=== PATIENT | female | born 1940 | race Caucasian/White ===

== ENCOUNTER → 2019-09-28 | Outpatient (CLI) | payer MEDICARE ==
--- NOTE | 2019-09-28 15:32 | US ---
EXAMINATION TYPE: US kidneys/renal and bladder DATE OF EXAM: 09/28/2019 COMPARISON: NONE CLINICAL HISTORY: N18.3 Chronic kidney disease, stage 3 (moderate). Abnormal labs EXAM MEASUREMENTS: Right Kidney: 9.5 x 5.1 x 5.4 cm Left Kidney: 9.6 x 4.3 x 4.2 cm Right Kidney: Cortical thinning, cyst lower pole= 4.0 x 2.9 x 3.5 cm, cyst upper pole= 1.7 x 1.4 x 1. 4 cm Left Kidney: Cortical thinning Bladder: wnl Bilateral Jets seen: Only right jet visualized There is no evidence for hydronephrosis at this point in time. No nephrolithiasis is seen. No suspi cious masses are identified. The urinary bladder is anechoic. Bilateral ureteral jets are not seen. IMPRESSION: Sonographic sequela of medical renal disease. There are 2 right renal cysts measuring up to 4.0 cm that appears simple and benign. No hydronephrosis of either kidney.
== END | disposition home or self-care (01) ==
LOC: RADUSWWP 14:05
PROVIDERS: ATTEND Family Medicine
DX: N28.1 Cyst of kidney, acquired (principal); N28.9 Disorder of kidney and ureter, unspecified
CPT/HCPCS: 76770

== ENCOUNTER 2023-05-17 14:24 | Emergency (ER) | payer MEDICARE ==
[2023-05-17] MEDS ORDERED: ONDANSETRON ODT 4 MG TAB PO STA (14:40)
[2023-05-17 14:48] VITALS: RESP 18; TEMP 97.4
--- NOTE | 2023-05-17 14:57 | ED ---
General Adult HPI - General Chief complaint: Extremity Injury, Upper Stated complaint: Fall, right shoulder injury Time Seen by Provider: 05/17/23 14:45 Source: patient, RN notes reviewed, old records reviewed Mode of arrival: EMS Limitations: physical limitation - History of Present Illness Initial comments: This is an 82-year-old female who presents to the emergency department after she fell. Patient states she tripped and landed on her right shoulder. Patient denies hitting her head or neck. Patient denies any headache. Patient denies any chest pain or back pain. Patient has any abdominal pain. Patient has any extremity pain other than the right shoulder. Patient states after she hurt her shoulder she was in quite a bit of pain and was vomiting. Review of Systems ROS Statement: Those systems with pertinent positive or pertinent negative responses have been documented in the HPI. ROS Other: All systems not noted in ROS Statement are negative. Past Medical History Past Medical History: Atrial Fibrillation History of Any Multi-Drug Resistant Organisms: None Reported Additional Past Surgical History / Comment(s): Tooth extraction Past Psychological History: Anxiety Smoking Status: Former smoker Past Alcohol Use History: None Reported Past Drug Use History: None Reported General Exam - General Exam Comments Initial Comments: GENERAL: Patient is well-developed and well-nourished. Patient is nontoxic and well- hydrated and is in mild distress. ENT: Neck is soft and supple. No significant lymphadenopathy is noted. Oropharynx is clear. Moist mucous membranes. Neck has full range of motion without eliciting any pain. EYES: The sclera were anicteric and conjunctiva were pink and moist. Extraocular movements were intact and pupils were equal round and reactive to light. Eyelids were unremarkable. PULMONARY: Unlabored respirations. Good breath sounds bilaterally. No audible rales rhonchi or wheezing was noted. CARDIOVASCULAR: There is a regular rate and rhythm without any murmurs gallops or rubs. ABDOMEN: Soft and nontender with normal bowel sounds. No palpable organomegaly was noted. There is no palpable pulsatile mass. SKIN: Skin is clear with no lesions or rashes and otherwise unremarkable. NEUROLOGIC: Patient is alert and oriented x3. Cranial nerves II through XII are grossly intact. Motor and sensory are also intact. Normal speech, volume and content. Symmetrical smile. MUSCULOSKELETAL: Patient is tender to the anterior lateral aspect of the right shoulder. Patient has no tenderness to any other extremities and no tenderness to the right elbow or wrist LYMPHATICS: No significant lymphadenopathy is noted PSYCHIATRIC: Normal psychiatric evaluation. Limitations: physical limitation Course Vital Signs 05/17/23 14:44 Temperature 97.4 F L Pulse Rate 48 L Respiratory 18 Rate Blood Pressure 94/52 O2 Sat by Pulse 96 Oximetry Medical Decision Making - Medical Decision Making Was pt. sent in by a medical professional or institution (, [facility], SOCIAL SCIENCE PROFESSOR, urgent care, hospital, or [place] health care facility...) When possible be specific @ -No Did you speak to anyone other than the patient for history (EMS, parent, family, police, friend...)? What history was obtained from this source @ -No Did you review nursing and triage notes (agree or disagree)? Why? @ -I reviewed and agree with nursing and triage notes Were old charts reviewed (outside hosp., previous admission, EMS record, old EKG, old radiological studies, urgent care reports/EKG's, [place] health care facility records)? Report findings @ -No old charts were reviewed Differential Diagnosis (chest pain, altered mental status, abdominal pain women, abdominal pain men, vaginal bleeding, weakness, fever, dyspnea, syncope, headache, dizziness, GI bleed, back pain, seizure, CVA, palpatations, mental health, musculoskeletal)? @ -Differential Musculoskeletal Muscular strain, contusion, ligament sprain, fracture, arthritis, septic arthritis, bursitis, cellulitis, muscle spasm, nerve compression, DVT, arterial occlusion, herpes zoster, electrolyte abnormality, tumor.... This is not meant to be in all inclusive list EKG interpreted by me (3pts min.). @ -As above X-rays interpreted by me (1pt min.). @ -X-ray of the shoulder shows a comminuted impacted fracture of the humerus on the right CT interpreted by me (1pt min.). @ -None done U/S interpreted by me (1pt. min.). @ -None done What testing was considered but not performed or refused? (CT, X-rays, U/S, labs)? Why? @ -None What meds were considered but not given or refused? Why? @ -None Did you discuss the management of the patient with other professionals (professionals i.e. , OLE[employer], SOCIAL SCIENCE PROFESSOR, lab, RT, psych nurse, oncology social work, lettuce trimmer, teacher, canine enforcement officer, field nurse case manager)? Give summary @ -I spoke with the physician human resources executive assistant for Dr. Torre wanted the patient put in a shoulder immobilizer and follow-up in the office Was smoking cessation discussed for >3mins.? @ -No Was critical care preformed (if so, how long)? @ -No Were there social determinants of health that impacted care today? How? (Homelessness, low income, unemployed, alcoholism, drug addiction, transportation, low edu. Level, literacy, decrease access to med. care, fpc, rehab)? @ -No Was there de-escalation of care discussed even if they declined (Discuss DNR or withdrawal of care, Hospice)? DNR status @ -No What co-morbidities impacted this encounter? (DM, HTN, Smoking, COPD, CAD, Cancer, CVA, ARF, Chemo, Hep., AIDS, mental health diagnosis, sleep apnea, morbid obesity)? @ -None Was patient admitted / discharged? Hospital course, mention meds given and route, prescriptions, significant lab abnormalities, going to OR and other pertinent info. @ -Patient x-ray which showed a proximal humerus fracture and patient was put in a shoulder immobilizer and family was with her and agree that [facility] would [facility] Undiagnosed new problem with uncertain prognosis? @ -No Drug Therapy requiring intensive monitoring for toxicity (Heparin, Nitro, Insulin, Cardizem)? @ -No Were any procedures done? @ -No Diagnosis/symptom? @ -Fracture humerus comminuted impacted Acute, or Chronic, or Acute on Chronic? @ -Acute Uncomplicated (without systemic symptoms) or Complicated (systemic symptoms)? @ -Complicated Side effects of treatment? @ -No Exacerbation, Progression, or Severe Exacerbation? @ -No Poses a threat to life or bodily function? How? (Chest pain, [place], [place], pneumonia, PE, COPD, DKA, ARF, appy, cholecystitis, CVA, Diverticulitis, Homicidal, Suicidal, threat to staff... and all critical care pts) @ -No Disposition Clinical Impression: Humerus fracture Disposition: HOME SELF-CARE Instructions (If sedation given, give patient instructions): Proximal Humerus Fracture (ED) Additional Instructions: [facility] with [facility]. Patient should take Motrin and Tylenol when necessary for pain. Is patient prescribed a controlled substance at d/c from ED?: No Referrals: Billy Tellez MD [Primary Care Provider] - 1-2 days Chriss Torre MD [Medical Doctor] - 1-2 days Time of Disposition: 15:51
--- NOTE | 2023-05-17 15:15 | XR ---
EXAMINATION TYPE: XR chest 1V, XR shoulder complete RT DATE OF EXAM: 05/17/2023 3:07 PM COMPARISON: Chest radiographs from 10/08/2013 TECHNIQUE: XR chest 1V, XR shoulder complete RT Frontal view of the chest. The right shoulder was exa mined in internal rotation, external rotation, scapular Y view projections, CLINICAL INDICATION:Female, 82 years old with history of FALL; FINDINGS: Lungs/Pleura: There is no evidence of pleural effusion, focal consolidation, or pneumothorax. Pulmonary vascularity: Unremarkable. Heart/mediastinum: Cardiomediastinal silhouette is unremarkable. Atherosclerotic calcifications are seen in the aorta. Musculoskeletal: Acute comminuted and mildly displaced right proximal humeral neck fracture with exte nsion into the greater tuberosity. There is approximately 1.5 cm of shortening. Moderate AC joint art hropathy with joint space narrowing and spurring noted. IMPRESSION: Acute comminuted mildly displaced right proximal humeral neck fracture with extension to the greater tuberosity.
[2023-05-17 16:10] VITALS: BP 132/78; PULSE 80
== END 2023-05-17 16:10 | disposition home or self-care (01) ==
LOC: EC 14:24
DX: S42.351A Displaced comminuted fracture of shaft of humerus, right arm, initial encounter for closed fracture (principal); I48.91 Unspecified atrial fibrillation; Z86.59 Personal history of other mental and behavioral disorders; Z87.891 Personal history of nicotine dependence; W01.0XXA Fall on same level from slipping, tripping and stumbling without subsequent striking against object, initial encounter
CPT/HCPCS: 71045; 99284

== ENCOUNTER → 2024-09-21 | Outpatient (CLI) | payer MEDICARE ==
--- NOTE | 2024-09-21 10:37 | US ---
EXAMINATION TYPE: US kidneys/renal and bladder DATE OF EXAM: 09/21/2024 COMPARISON: Renal ultrasound 09/28/2019 CLINICAL INDICATION: Female, 84 years old with history of N18.30 CHRONIC KIDNEY DISEASE, STAGE 3; CKD 3 TECHNIQUE: Grayscale and color Doppler imaging of the bilateral kidneys and urinary bladder: FINDINGS: EXAM MEASUREMENTS: Right Kidney: 8.5 x 4.5 x 2.9 cm Left Kidney: 8.2 x 3.5 x 3.3 cm Right Kidney: Echogenic foci seen lower pole 7mm. Multiple cysts seen largest inferior 7.1 x 3.5 x 4. 0 cm. Left Kidney: No hydronephrosis or masses seen Bladder: Anechoic Bilateral Jets seen: no There is no evidence for hydronephrosis at this point in time. Nonobstructive right lower pole 7 mm c alculus. Multiple simple right renal cysts with largest inferiorly measuring 7.1 cm. No left renal ca lculi. Cortical medullary differentiation is maintained bilaterally. No masses are identified. The u rinary bladder is anechoic. Bilateral ureteral jets not seen. IMPRESSION: 1. No hydronephrosis. 2. Nonobstructive right renal calculus. 3. Right renal simple cysts. [facility], , 09/21/2024 10:34 AM
== END | disposition home or self-care (01) ==
LOC: RADUSWWP 08:00
PROVIDERS: ATTEND Internal Medicine
CPT/HCPCS: 76770

== ENCOUNTER → 2024-10-12 | Outpatient (CLI) | payer MEDICARE ==
--- NOTE | 2024-10-12 09:03 | USB ---
Patient History: Menarche at age 15. First Full-Term at age 27. Postmenopausal. Patient has history of breast feeding. Daughter had breast cancer, right, age 51. Daughter tested for BRCA2 outcome was positive. Daughter tested for BRCA1 outcome was negative. Risk Values: Harini 5 year model risk: 3.1%. NCI Lifetime model risk: 4.1%. Technique: Method: Targeted. Doppler: Color. Patient Position: Supine. Prior Study Comparison: 08/18/2007 Bilateral Screening Mammogram, [facility]. 03/20/2010 Bilateral Screening Mammogram, [facility]. 09/15/2013 Bilateral Screening Mammogram, [facility]. Findings: The upper inner quadrant of the right breast, the periareolar of the right breast, the axilla of the right breast and the retroareolar of the right breast were scanned. Irregular spiculated mass at the right 1:00 position 3 cm from the nipple measuring 3.6 x 3.7 x 3.0 cm with increased vascularity seen. Additional solid nodule at the right 3:00 position measuring 1 cm. No adenopathy appreciated in the region of the right axilla. Overall Assessment: Highly suggestive of malignancy, BI-RAD 5 Management: Ultrasound Core Biopsy of the right breast. A clinical breast exam by your physician is recommended on an annual basis and results should be correlated with mammographic findings. This exam should not preclude additional follow-up of suspicious palpable abnormalities. Results were given to the patient verbally at the time of exam. [facility], , 10/12/2024 8:59 AM. Electronically signed and approved by: Ronald Miller M.D. Radiologis
--- NOTE | 2024-10-12 12:59 | MM ---
Reason for Exam: Clinical finding. Last mammogram was performed 11 year(s) and 1 month(s) ago. Indicated Problems: Lump or thickening of the right side (size 50) for 11 Month(s). Patient History: Menarche at age 15. First Full-Term at age 27. Postmenopausal. Patient has history of breast feeding. Daughter had breast cancer, right, age 51. Daughter tested for BRCA2 outcome was positive. Daughter tested for BRCA1 outcome was negative. Risk Values: Harini 5 year model risk: 3.1%. NCI Lifetime model risk: 4.1%. Prior Study Comparison: 08/18/2007 Bilateral Screening Mammogram, [facility]. 03/20/2010 Bilateral Screening Mammogram, [facility]. 09/15/2013 Bilateral Screening Mammogram, [facility]. Tissue Density: The breasts are almost entirely fatty. Findings: Analyzed By CAD. Spiculated mass at 12:00 position measuring 4.6 x 3.1 cm. In the inner portion of the right breast with some additional 5.5 nodular density 4.5 cm from nipple. No left-sided breast mass is seen. Benign left-sided vascular and secretory type calcifications identified. No obvious adenopathy present. Overall Assessment: Incomplete: need additional imaging evaluation, BI-RAD 0 Management: Diagnostic Breast Ultrasound of the right breast. Results were given to the patient verbally at the time of exam. Patient should continue monthly self-breast exams. A clinical breast exam by your physician is recommended on an annual basis. This exam should not preclude additional follow-up of suspicious palpable abnormalities. Note on Harini scores and lifetime risk: 1. A Harini score greater than 3% is considered moderate risk. If this is the case, consider specialist referral to assess eligibility for a risk reducing agent. 2. If overall lifetime risk for the development of breast cancer is 20% or higher, the patient may qualify for future screening with alternating mammogram and breast MRI. [facility], , 10/12/2024 8:46 AM . Electronically signed and approved by: Ronald Miller M.D. Radiologis
== END | disposition home or self-care (01) ==
LOC: RADMAMWWP 08:01
PROVIDERS: ATTEND Internal Medicine
DX: N63.0 Unspecified lump in unspecified breast (principal); Z78.0 Asymptomatic menopausal state; Z80.3 Family history of malignant neoplasm of breast; R92.313 Mammographic fatty tissue density, bilateral breasts
CPT/HCPCS: 77066; 76642; G0279; 77062

== ENCOUNTER → 2024-11-01 | Day surgery (SDC) | payer MEDICARE ==
--- NOTE | 2024-11-08 11:04 | MM ---
Reason for Exam: Post Procedure Mammogram. Last screening mammogram was performed less than 1 month ago. Patient History: Menarche at age 15. First Full-Term at age 27. Postmenopausal. Patient has history of breast feeding. Daughter had breast cancer, right, age 51. Daughter tested for BRCA2 outcome was positive. Daughter tested for BRCA1 outcome was negative. Risk Values: Harini 5 year model risk: 3.1%. NCI Lifetime model risk: 4.1%. Prior Study Comparison: 03/20/2010 Bilateral Screening Mammogram, [facility]. 09/15/2013 Bilateral Screening Mammogram, [facility]. 10/12/2024 Bilateral MG 3D diag mammo w/cad ROSARIO, [facility]. Tissue Density: Right: The breasts are almost entirely fatty. Pathology Description: Location: 11 o'clock. Marker Left Behind. Cores: 5 Gauge: 13 Pathology Results: Results pending. Pathology Description: Location: 1 o'clock. Marker Left Behind. Needle Type: Mammotome Cores: 7 Skin Nicks: 1 Gauge: 13 The procedure of ultrasound guided core biopsy was explained to the patient. Benefits, alternatives, and risks were discussed. An informed consent was then obtained. A timeout was performed. The patient was placed in supine positioning for imaging and for the procedure. The overlying skin was prepped and draped in usual sterile fashion. Skin was anesthetized with lidocaine. Lidocaine epinephrine was used as anesthetic into subcutaneous tissue up to area of concern in the right breast. A small skin kylah was made with surgical scalpel. Under ultrasound guidance, a 12-gauge vacuum assisted biopsy gun device was used to obtain 7 core samples from the 1:00 lesion 3 cm from the nipple. A biopsy clip was left in lesion. Hydromark wing core marker was placed. Under ultrasound guidance, a 12-gauge vacuum assisted biopsy gun device was used to obtain 4 core samples from the 11:00 lesion 3 cm from the nipple. (Originally labelled 3 o'clock. No similar lesion at that location.) A biopsy clip was left in lesion. Hydromark butterfly core marker was placed. The patient tolerated the procedure well without any immediate complication. The patient was kept in the radiology department for short stay after the procedure and then discharged home in stable condition. Postprocedure mammogram: The patient was transferred to mammography for physician ordered post procedure mammogram for clip placement verification. Post procedure mammogram demonstrates the clip in appropriate placement. Impression: Successful ultrasound guided core biopsy of 2 areas of concern in the right breast, full pathology results to follow. Recommendations: 1. Recommendations are pending pathology results. [facility], , 11/01/2024 1:40 PM. Pathology Results: Result: Malignant, Invasive ductal carcinoma. Pathology and radiology were reviewed. Findings are concordant. A. 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 B. RIGHT BREAST, ELEVEN O'CLOCK, ULTRASOUND GUIDED CORE BIOPSY: Invasive high grade ductal carcinoma, Grade 3, with focal high grade DCIS (see Surgical Pathology Cancer Case Summary and Comment). Overall Assessment: Malignant Assessment: MG diagnostic mammo RT wo CAD - Right: Known biopsy proven malignancy, BI-RAD 6. Management: Diagnostic Breast Ultrasound of the right breast in 6 months. Surgical Consultation of the right breast. Electronically signed and approved by: Jose Espinoza D.O. Radiologis
== END ==
LOC: RADUSWWP 10:12
PROVIDERS: ATTEND Internal Medicine
DX: C50.211 Malignant neoplasm of upper-inner quadrant of right female breast (principal); Z17.0 Estrogen receptor positive status [ER+]; Z78.0 Asymptomatic menopausal state; Z80.3 Family history of malignant neoplasm of breast
CPT/HCPCS: 88305; 88342; 88341; 77065; 19083; 19084; A4648

== ENCOUNTER → 2024-12-01 | Outpatient (CLI) | payer MEDICARE ==
--- NOTE | 2024-12-01 17:21 | PE ---
EXAMINATION TYPE: PET CT fusion skull to thigh DATE OF EXAM: 12/01/2024 CLINICAL INDICATION:Female, 84 years old with history of C50.211 BREAST CA; TECHNIQUE: Following the intravenous administration of 13.6 mCi of F-18 FDG, whole body images are performed from the skull base to the midthigh. Images are reviewed on the computer in the coronal, a xial, and sagittal planes. Reconstructed rotating images are created on independent workstation and reviewed on the computer. A non-contrast CT is performed in conjunction with the PET scan. Glucose level 103 mg/dL CT DLP: 510.32 mGycm, Automated exposure control for dose reduction was used. COMPARISON: CT None, PET/CT None, MRI: None FINDINGS: Mediastinal SUV mean is 2.2. Hepatic parenchyma SUV mean is 2.8. SKULL BASE AND NECK: No suspicious radiotracer activity. CHEST, MEDIASTINUM, AND HILAR REGION: Upper right breast mass measuring up to 4.2 cm with radiotracer uptake demonstrating a maximum SUV of 29.6. No definitive FDG avid lymphadenopathy. ABDOMEN AND PELVIS: No suspicious radiotracer activity. MUSCULOSKELETAL STRUCTURES: No suspicious radiotracer activity. OTHER CT: Bilateral aphakia. Bilateral carotid bulb calcifications. Mild atherosclerotic calcificatio n of the aorta and its branches. Mild cardiomegaly. Dense mitral annulus calcifications. Small aortic valvular calcifications. Small coronary artery calcifications. Nonobstructive bilateral renal calcul i. Exophytic right renal lower pole 4.9 cm cyst. Distal colonic diverticulosis without evidence for a cute diverticulitis. Small hiatal hernia. Calcified uterine fundal fibroid measuring up to 2.2 cm. Mu ltilevel degenerative changes of the visualized spine. IMPRESSION: FDG avid right breast mass consistent with known breast cancer. No suspicious radiotracer activity el sewhere to suggest metastasis. [facility], , 12/01/2024 5:19 PM
== END | disposition home or self-care (01) ==
LOC: RADPETMAIN 12:07
PROVIDERS: ATTEND Internal Medicine Hematology & Oncology
DX: C50.211 Malignant neoplasm of upper-inner quadrant of right female breast (principal); N63.10 Unspecified lump in the right breast, unspecified quadrant
CPT/HCPCS: 78815; A9552